=== PATIENT | female | born 1955 | race Caucasian/White ===

== ENCOUNTER → 2018-11-27 | Outpatient (CLI) | payer OTHER ==
[~2018-11-27] MED LIST: LEVSOD50 PO; Percocet 5-3251 EACH PO
[2018-11-28 15:06] LABS: HPV 16 Negative (Negative); HPV 18 Negative (Negative); HPV OTHER HR TYPES Negative (Negative)
== END | disposition home or self-care (01) ==
LOC: LAB SHORT 12:37 → LAB 12:37
PROVIDERS: Nurse Practitioner Obstetrics & Gynecology
DX: Z01.419 Encounter for gynecological examination (general) (routine) without abnormal findings (principal)
CPT/HCPCS: 87624; G0123

== ENCOUNTER → 2018-12-26 | Outpatient (CLI) | payer OTHER | END | disposition home or self-care (01) | LOC: PLD 07:37 → LAB SHORT 07:37 | DX: D48.5 Neoplasm of uncertain behavior of skin (principal) | CPT/HCPCS: 88305 ==

== ENCOUNTER → 2019-01-16 | Outpatient (CLI) | payer OTHER | END | disposition home or self-care (01) | LOC: LAB SHORT 11:20 → PLD 11:20 | DX: D48.5 Neoplasm of uncertain behavior of skin (principal) | CPT/HCPCS: 88305 ==

== ENCOUNTER 2022-11-21 09:26 | Day surgery (SDC) | payer OTHER ==
[~2022-11-21] VITALS: Ht 154.9 cm; Wt 49.2 kg
[2022-11-21] VITALS (16 sets, daily range): BP systolic 113–162; BP diastolic 78–117
--- NOTE | 2022-11-21 10:22 | NUR ---
History, Chart, Medications and Allergies reviewed before start of procedure.Pre-Op teaching done. Pt verbalizes understanding. Patient confirms NPO status and agrees with scheduled surgery. Patient States Post-Procedure ride home has been arranged.
[2022-11-21] MEDS ORDERED: MELO7.5 PO (10:24)
--- NOTE | 2022-11-21 10:54 | NUR ---
11/21/22 1054 [address] HISTORY, CHART, MEDICATIONS AND ALLERGIES REVIEWED BEFORE START OF PROCEDURE. PATIENT CONFIRMS NPO STATUS AND AGREES WITH SCHEDULED PROCEDURE. 3-LEAD EKG REVIEWED WITH PHYSICIAN PRIOR TO START OF PROCEDURE. MONITOR INTACT WITH CONTINUOUS PULSE OXIMETRY,CAPNOGRAPHY, 3-LEAD EKG, INTERMITTENT BP. SUPPLEMENTAL O2 TO BE TITRATED THROUGHOUT PROCEDURE TO MAINTAIN O2 SATURATION ABOVE 90%. PATIENT DETERMINED TO BE ASA APPROPRIATE FOR PROPOFOL SEDATION PRIOR TO START OF PROCEDURE BY
--- NOTE | 2022-11-21 11:46 | NUR ---
Discharge instructions reviewed with patient. Patient verbalizes understanding. Copy given to patient to take home.
--- NOTE | 2022-11-21 11:54 | NUR ---
Discharge instructions reviewed with patient. Patient verbalizes understanding. Copy given to patient to take home. Discharged via wheelchair to private car for ride home.
== END 2022-11-21 11:56 | disposition home or self-care (01) ==
LOC: ORSCMMR 09:26
PROVIDERS: Internal Medicine Gastroenterology
PROC: 0DBK8ZX Excision of Ascending Colon, Via Natural or Artificial Opening Endoscopic, Diagnostic (ICD-10-PCS; principal; 2022-11-21 10:30)
PROC: 0DBH8ZX Excision of Cecum, Via Natural or Artificial Opening Endoscopic, Diagnostic (ICD-10-PCS; principal; 2022-11-21 10:30)
PROC: 0DBL8ZX Excision of Transverse Colon, Via Natural or Artificial Opening Endoscopic, Diagnostic (ICD-10-PCS; principal; 2022-11-21 10:30)
DX: Z12.11 Encounter for screening for malignant neoplasm of colon (principal); D12.2 Benign neoplasm of ascending colon; D12.3 Benign neoplasm of transverse colon; K63.5 Polyp of colon; F17.210 Nicotine dependence, cigarettes, uncomplicated; J44.9 Chronic obstructive pulmonary disease, unspecified
CPT/HCPCS: 88305; J2704; J7120

== ENCOUNTER 2024-01-23 11:13 | Day surgery (SDC) | payer MEDICARE, OTHER ==
[~2024-01-23] VITALS: Ht 152.4 cm; Wt 47.5 kg
[2024-01-23] VITALS (12 sets, daily range): BP systolic 117–196; BP diastolic 78–112
[~2024-01-23 11:13] MED LIST changes: +DOCU100 PO; +MELO7.5 PO; +OXYACE7.5T PO
[2024-01-23] MEDS ORDERED: Lactated Ringer's 1,000 ML IV SCH (12:35)
[2024-01-23] MEDS ORDERED: CeFAZolin Sodium 2,000 MG in NS 100 ML IV SCH (12:35)
[2024-01-23] MEDS ORDERED: OXYC5 PO (13:18)
[2024-01-23] MEDS ORDERED: MOBIC15 MG PO (13:19)
[2024-01-23] MEDS ORDERED: IBUP600 PO (13:20)
--- NOTE | 2024-01-23 13:22 | NUR ---
History, Chart, Medications and Allergies reviewed before start of procedure. Pre-Op teaching done. Pt verbalizes understanding. Patient confirms NPO status and agrees with scheduled surgery. Patient reports completing Chlorhexadine shower X2 prior to admission to hospital. Patient States Post-Procedure ride home has been arranged.
[2024-01-23] MEDS ORDERED: Midazolam HCl 1MG / ML 2ML Vial ONE (13:49)
[2024-01-23] MEDS ORDERED: FentaNYL Citrate 50 MCG/ML 2 ML Injection ONE (13:49)
[2024-01-23] MEDS ORDERED: propofoL 20 ML IV ONE (13:49)
[2024-01-23] MEDS ORDERED: Rocuronium Bromide 10 MG/ML 5ML Injection IV ONE (13:50)
--- NOTE | 2024-01-23 14:39 | NUR ---
POPLITEAL NERVE BLOCK COMPLETED IN SDS WITH DR. POWELL. 1426: TIME OUT PERFORMED 1427: 2MG VERSED IVP GIVEN BY 1428: PT REPOSITIONED PRONE WITH RN ASSIST 1429: 25MCG FENTANYL IVP GIVEN BY 1431: PROCEDURE START 1434: PROCEDURE END PULSE OXIMETRY ON THROUGHOUT PROCEDURE, PT TOLERATED WELL WITHOUT INCIDENT. VSSRA. NERVE STIMULATOR UTILIZED FOR BLOCK.
[2024-01-23] MEDS ORDERED: Dexamethasone Sod Phos 10 MG/ML 1ML VIAL ONE (14:44)
[2024-01-23] MEDS ORDERED: Ondansetron HCl 2 MG / ML 2ML Vial ONE (14:44)
[2024-01-23] MEDS ORDERED: Ketorolac Tromethamine 30mg Vial ONE (14:44)
[2024-01-23] MEDS ORDERED: Sugammadex Sodium 200 MG/2ML SDV (100 MG/ML) ONE (15:27)
[2024-01-23] MEDS ORDERED: OxyCODONE HCL 5 MG TAB PO ONE (17:10)
--- NOTE | 2024-01-23 17:30 | NUR ---
Patient up TO [facility] AND TRANSFERED TO WITHOUT PROBLEMS Discharge instructions reviewed with patient. Patient verbalizes understanding. Copy given to patient to take home. Dressing to procedure site clean, dry, intact with no visible drainage, swelling, erythema or bruising noted. Discharged via wheelchair to private car for ride home. PT WITH BLU WRAP AND SPLINT TO LEFT ANKLE TOES CAP REFILL<3 WITH GOOD CIRCULATION, PT HAVING GOOD RELEIF AFTER THE PAIN PILL AND IS READY TO DC HOME
== END 2024-01-23 22:57 | disposition home or self-care (01) ==
LOC: ORD 11:13 → ORSCMMR 11:13 → ORD 22:57
PROVIDERS: Orthopaedic Surgery
PROC: 0QSH04Z Reposition Left Tibia with Internal Fixation Device, Open Approach (ICD-10-PCS; principal; 2024-01-23 13:30)
PROC: 0QSK04Z Reposition Left Fibula with Internal Fixation Device, Open Approach (ICD-10-PCS; principal; 2024-01-23 13:30)
DX: S82.852A Displaced trimalleolar fracture of left lower leg, initial encounter for closed fracture (principal); W10.9XXA Fall (on) (from) unspecified stairs and steps, initial encounter; F17.210 Nicotine dependence, cigarettes, uncomplicated
CPT/HCPCS: A9270; C1713; C1769; J0690; J1100; J1885; J2250; J2405; J2704; J3010; J7120

== ENCOUNTER 2025-05-30 20:46 | Emergency (ER) | payer OTHER, MEDICARE ==
[~2025-05-30] VITALS: Ht 154.9 cm; Wt 52.2 kg
[~2025-05-30 20:46] MED LIST changes: +IBUP600 PO; +MOBIC15 MG PO; +OXYC5 PO
[2025-05-30] MEDS ORDERED: Morphine Sulfate 4 MG/1 ML Injection IV ONE (21:25)
[2025-05-30 21:31] LABS: BASOPHILS ABSOLUTE AUTO 0.20 K/mm3 (0.00-0.23); BASOPHILS PERCENT AUTO 1 % (0-2); EOSINOPHILS ABSOLUTE AUTO 0.33 K/mm3 (0.00-0.68); EOSINOPHILS PERCENT AUTO 2 % (0-6); Hematocrit 45.3 % (33.0-51.0); Hemoglobin 16.0 g/dL (11.5-16.0); IMMATURE GRAN ABSOLUTE AUTO 0.12 K/mm3 (0.00-0.10); IMMATURE GRAN PERCENT AUTO 1 % (0-1); LYMPHOCYTES ABSOLUTE AUTO 1.20 K/mm3 (0.84-5.20); LYMPHOCYTES PERCENT AUTO 6 % (21-46); MONOCYTES ABSOLUTE AUTO 1.92 K/mm3 (0.16-1.47); MONOCYTES PERCENT AUTO 9 % (4-13); Mean Corpuscular HGB Conc 35.3 g/dL (31.5-36.5); Mean Corpuscular Volume 95 fL (80-100); NEUTROPHILS ABSOLUTE AUTO 16.98 K/mm3 (1.96-9.15); NEUTROPHILS PERCENT AUTO 82 % (41-73); NRBC ABSOLUTE 0.00 K/mm3 (0.00-0.02); NRBC Auto 0.0 /100 WBC (0.0-0.2); Platelet Count 340 K/mm3 (150-400); RDW Coefficient Variation 13.0 % (11.7-14.2); RDW Standard Deviation 44.9 fL (35.1-46.3)
[2025-05-30] MEDS ORDERED: Ketorolac Tromethamine 15mg Vial IV ONE (21:35)
[2025-05-30 21:44] LABS: Alanine Aminotransfer (ALT/SGP 51.0 U/L (12-78); Albumin, Blood 3.9 g/dL (3.4-5.0); Albumin/Globulin Ratio 1.1 (0.8-1.8); Anion Gap 12.0 mmol/L (3-11); Aspartate Aminotrans (AST/SGOT 48.0 U/L (12-37); Bilirubin, Total 0.6 mg/dL (0.1-1.0); Blood Urea Nitrogen 6.0 mg/dL (8-24); CO2, Blood 21.0 mmol/L (21-32); Calcium, Blood 8.9 mg/dL (8.5-10.1); Chloride, Blood 101.0 mmol/L (98-108); Creatinine, Blood 0.4 mg/dL (0.40-1.00); Globulin, Blood 3.5 g/dL (2.2-4.0); Glucose, Blood 128.0 mg/dL (70-99); Magnesium, Blood 2.1 mg/dL (1.6-2.4); Potassium, Blood 3.5 mmol/L (3.5-5.5); Sodium, Blood 130.0 mmol/L (136-145); Total Protein, Blood 7.4 g/dL (6.4-8.2)
[2025-05-30] MEDS ORDERED: Diazepam 5 MG / ML 2ML SYR IV ONE (22:10)
[2025-05-30] MEDS ORDERED: Robaxin750 MG PO (23:39)
[2025-05-31] VITALS: BP 132/75
== END 2025-05-31 00:22 | disposition home or self-care (01) ==
LOC: ER 20:46
PROVIDERS: Student in an Organized Health Care Education/Training Program
DX: R07.89 Other chest pain (principal); Z87.891 Personal history of nicotine dependence; Z79.899 Other long term (current) drug therapy; V80.010A Animal-rider injured by fall from or being thrown from horse in noncollision accident, initial encounter
CPT/HCPCS: 70450; 71260; 72125; 74177; 80053; 83735; 85025; 93005; 93010; 96374-59; 96375; 99285-25; A9270; J1885; J3360; Q9967

== ENCOUNTER 2025-06-04 07:28 | Emergency (ER) | payer MEDICARE, OTHER ==
[~2025-06-04] VITALS: Ht 154.9 cm; Wt 68.0 kg
[~2025-06-04 07:28] MED LIST changes: +Robaxin750 MG PO
[2025-06-04] MEDS ORDERED: Ketorolac Tromethamine 15mg Vial IM ONE (08:05)
[2025-06-04] MEDS ORDERED: Lidocaine 4% 1 Patch TOP ONE (08:05)
[2025-06-04] MEDS ORDERED: IBUP600 PO (08:35)
[2025-06-04] MEDS ORDERED: ACET500 PO (08:35)
[2025-06-04] MEDS ORDERED: PERCOCET 10-321 EA13 PO (08:35)
[2025-06-04] MEDS ORDERED: LIDO700A20 TOP (08:35)
[2025-06-04 08:53] VITALS: BP 150/85
== END 2025-06-04 08:52 | disposition home or self-care (01) ==
LOC: ER 07:28
DX: R07.89 Other chest pain (principal); R91.1 Solitary pulmonary nodule; Z79.899 Other long term (current) drug therapy; Z87.891 Personal history of nicotine dependence
CPT/HCPCS: 96372; 99283-25; A9270; J1885